=== PATIENT | female | born 1995 | race Caucasian/White ===

== ENCOUNTER 2017-06-04 01:14 | Emergency (ER) | payer OTHER ==
[2017-06-04] MEDS: AUGMENTIN 875 MG TAB PO (05:25)
== END 2017-06-04 05:31 | disposition home or self-care (01) ==
LOC: M ED 01:14
DX: J02.9 Acute pharyngitis, unspecified (principal); J20.9 Acute bronchitis, unspecified; F33.9 Major depressive disorder, recurrent, unspecified; Z79.899 Other long term (current) drug therapy; F17.210 Nicotine dependence, cigarettes, uncomplicated
CPT/HCPCS: 71046